=== PATIENT | male | born 1970 | race Caucasian/White ===

== ENCOUNTER 2017-05-15 22:34 | Emergency (ER) | payer OTHER ==
[~2017-05-15] VITALS: Ht 185.4 cm; Wt 108.9 kg
[~2017-05-15 22:34] MED LIST: AMARYL2 MG PO; AMOXICILLIN 50500 MG PO; AUGMENTIN 875875 MG PO; BELSOMRA20 MG PO; BENADRYL25 MG PO; CIPRO500 MG PO; CIPROFLOXACIN500 M1; CIPROFLOXACIN500 M1 PO; DILAUDID1 MG/1 ML IV PUSH; DIPHENHYDRAM50 MG/M2 IV PUSH; FENTANYL 75 MCG TRANSDERM; FENTANYL PA50 MCG/HR TP; FENTANYL PA50 MCG/HR TRANSDERM; FENTANYL PATCH75 MCG TRANSDERM; FLAGYL500 MG; FLAGYL500 MG PO; FLEXERIL PO; GLUCOPHAGE1000 MG PO; HYDROCODON-ACE1 EAC5 PO; HYDROCODONE-AP1 EAC6 PO; IBUPROFEN 800800 M1 PO; INVOKANA100 MG PO; INVOKANA300 MG PO; JANUMET 50-5001 EACH PO; KEFLEX500 M1 PO; LANTUS100 UNIT/M SUBQ; LEVEMIR SUBQ; LEXAPRO 10 MG T10 M2 PO; LIPITOR10 MG PO; LORTAB 10-3251 EACH PO; NABUMETONE 500500 M1 PO; NABUMETONE PO; NEURONTIN 300300 M1 PO; NORCO 10-325 T1 EACH PO; NORCO 5-325 TA1 EACH PO; NOVOLOG100 UNIT/1 SUBQ; ONDANSETRON HCL4 M1 IV; ONDANSETRON HCL4 M2 IV; ONDANSETRON HCL4 M2 PO; PANTOPRAZOLE PO; PERCOCET 10-321 EACH PO; PERCOCET 5-3251 EACH PO; PHENERGAN 25 MG25 M1 PO; PREDNISONE 10 M10 M1 PO; PROPRANOLOL 1010 M1 PO; PROZASIN PO; RESTORIL15 MG PO; RESTORIL30 MG PO; TRAMADOL 50 MG50 MG PO; TRAZODONE 150150 M1 PO; TYLENOL325 MG PO; ULTRACET TABLE1 EACH PO; VALIUM5 MG PO; VICODIN 5-5001 EACH PO; VICODIN HP 10-1 EAC1 PO; ZANTAC 150MG T150 M1; ZOFRAN ODT4 MG PO; ZOLOFT100 MG PO; ZOLOFT50 MG PO; victoza PO
[2017-05-15] MEDS ORDERED: NOVOLIN 70100 UNIT/1 SUBQ (22:48)
[2017-05-15] MEDS ORDERED: LANTUS SUBQ (22:48)
[2017-05-15] MEDS ORDERED: KEFLEX500 M1 PO (22:51)
[2017-05-15] MEDS ORDERED: NAPROSYN500 MG PO (22:51)
[2017-05-15 22:59] VITALS: BP 135/82
== END 2017-05-15 23:00 | disposition home or self-care (01) ==
LOC: M.ERS 22:34
DX: L03.031 Cellulitis of right toe (principal); E11.9 Type 2 diabetes mellitus without complications; F17.200 Nicotine dependence, unspecified, uncomplicated; Z88.6 Allergy status to analgesic agent; Z91.041 Radiographic dye allergy status

== ENCOUNTER → 2017-07-31 | Outpatient (CLI) | payer OTHER ==
[~2017-07-31] MED LIST changes: +AZITHROMYCIN 2250 MG PO; +LANTUS SUBQ; +NAPROSYN500 MG PO; +NOVOLIN 70100 UNIT/1 SUBQ; +PRILOSEC OTC20 MG PO; +TRULICITY
== END ==
LOC: M.MRI 07-24 11:05
DX: M75.101 Unspecified rotator cuff tear or rupture of right shoulder, not specified as traumatic (principal); S83.242A Other tear of medial meniscus, current injury, left knee, initial encounter; X58.XXXA Exposure to other specified factors, initial encounter; Y93.89 Activity, other specified; Y92.89 Other specified places as the place of occurrence of the external cause; Y99.8 Other external cause status

== ENCOUNTER 2017-08-11 20:06 | Inpatient (IN) | payer OTHER ==
[~2017-08-11] VITALS: Ht 182.9 cm; Wt 103.9 kg
[~2017-08-11 20:06] MED LIST changes: -AZITHROMYCIN 2250 MG PO; -PRILOSEC OTC20 MG PO; -TRULICITY
[2017-08-11 20:37] VITALS: BP 125/94
[2017-08-11] MEDS ORDERED: NOVOLOG100 UNIT/1 SUBQ (20:47)
[2017-08-11] MEDS ORDERED: NEURONTIN 300300 M1 PO (20:48)
--- NOTE | 2017-08-11 20:49 | NUR ---
TRIAGE DONE BY BECKI DREW RN
[2017-08-11 20:58] LABS: ABSOLUTE BASOPHILS 0.1 thou/uL (0.0-0.2); ABSOLUTE EOSINOPHILS 0.1 thou/uL (0.0-0.7); ABSOLUTE LYMPHOCYTES 2.7 thou/uL (0.8-5.3); ABSOLUTE MONOCYTES 0.8 thou/uL (0.0-1.2); BASOPHILS 0.8 %; EOSINOPHILS 0.6 %; HEMATOCRIT 50.2 % (42.0-52.0); MCH 29.4 pg (26.0-34.0); MCHC 33.9 g/dL (28.0-37.0); MCV 86.8 fL (80.0-100.0); MONOCYTES 7.4 %; MPV 7.1 fl. (7.2-11.1); NUCLEATED RBCS 0 /100WBC; PLATELET COUNT* 287 thou/uL (150-400); POLYS 66.2 %; RBC 5.78 mil/uL (4.50-6.00); RDW-CV 13.7 % (10.5-14.5); WBC 10.6 thou/uL (4.0-11.0)
[2017-08-11 21:08] LABS: CALCIUM 8.4 mg/dL (8.5-10.1); CREATININE 0.9 mg/dL (0.6-1.3); POTASSIUM 3.8 mmol/L (3.5-5.1)
[2017-08-11 21:13] LABS: ALBUMIN 3.6 g/dL (3.4-5.0); TOTAL BILIRUBIN 0.6 mg/dL (<0.1-1.0); TOTAL PROTEIN 7.2 g/dL (6.4-8.2)
[2017-08-11 22:54] LABS: URINE BLOOD TRACE (Negative); URINE CLARITY CLEAR; URINE COLOR YELLOW; URINE GLUCOSE-RANDOM 3+ (Negative); URINE LEUKOCYTES-REFLEX NEGATIVE (Negative); URINE NITRITE-REFLEX NEGATIVE (Negative); URINE PROTEIN NEGATIVE (Negative); URINE SPECIFIC GRAVITY 1.025 (1.005-1.030); URINE UROBILINOGEN 0.2 E.U./dl (0.2-1.0)
[2017-08-11 22:57] LABS: ICTOTEST (BILI CONFIRMATORY) Negative (Negative); URINE BILIRUBIN 1+ (Negative); URINE KETONES 3+ (Negative)
[2017-08-11 23:35] VITALS: BP 109/70
[2017-08-11 23:39] LABS: AMP/METHAMP POSITIVE (Negative); BARBITURATES Negative (Negative); BENZODIAZEPINES POSITIVE (Negative); COCAINE Negative (Negative); METHADONE Negative (Negative); OPIATES Negative (Negative); PCP Negative (Negative); THC Negative (Negative)
[2017-08-11 23:45] VITALS: BP 120/81
--- NOTE | 2017-08-11 23:45 | NUR ---
PT ADMITTED TO FLOOR PER CART ACCOMPANIED BY ER STAFF WITH BELONGINGS.AMBULATES FROM CART TO BED WITH STEADY GAIT INDEP. RAC IVF PLACED ON PUMP FOR INFUSION. PT CO RLQ RADIATING TO R FLANK PAIN 6/10, WILL GIVE PAIN MEDS ORDERED. DENIES N/V, REQUESTING BOX LUNCH. ORIENTED TO ROOM AND CALL LITE. HISTORY OBTAINED AND ASSESSMENT PERFORMED, SEE ADMIT NOTES. REFUSING SCDS, EDUCATION GIVEN. ACCUCHECK 215, REFUSING INSULIN. INSTRUCTED IN NPO AFTER MIDNIGHT AND SURGERY CONSULT IN THE MORNING, VERBALIZES UNDERSTANDING. CALL LITE IN EASY REACH. WILL CONTINUE TO MONITOR AND PROVIDE CARES NEEDED.
[2017-08-12 04:19] LABS: HEMATOCRIT 45.5 % (42.0-52.0); HEMOGLOBIN 15.3 gm/dL (14.0-18.0); MCH 29.3 pg (26.0-34.0); MCHC 33.7 g/dL (28.0-37.0); MCV 87.1 fL (80.0-100.0); MPV 7.5 fl. (7.2-11.1); RBC 5.22 mil/uL (4.50-6.00); RDW-CV 13.7 % (10.5-14.5); WBC 8.9 thou/uL (4.0-11.0)
[2017-08-12 04:35] LABS: POTASSIUM 4.4 mmol/L (3.5-5.1)
--- NOTE | 2017-08-12 06:00 | NUR ---
NEW ADMISSION OVERNIGHT. PT HAD BOX LUNCH WITHOUT N/V AFTER ARRIVING TO FLOOR. IV PAIN MED GIVEN X2 FOR CO RLQ RADIATING TO BACK ABD PAIN 6-8/10 WITH GOOD RELIEF. PT HAS SLEPT OFF AND ON AFTER RECEIVING IV PAIN MED. USING URINAL TO VOID GOOD AMOUNT. ACCUCHECK ON ARRIVAL TO UNIT 215, PT REFUSING INSULIN STATING HE TOOK SOMETHING AT HOME AND DIDNT WANT TO BOTTOM OUT WHILE BEING NPO. AM LABS DRAWN. SURGERY TO SEE PT THIS MORNING. PT NPO SINCE 0100. NO N/V. ABLE TO USE CALL LITE AND MAKE NEEDS KNOWN. IVF INFUSING PER PUMP RAC.
[2017-08-12 08:00] VITALS: BP 107/76
--- NOTE | 2017-08-12 12:03 | NUR ---
Nutrition: Consult received for "weight change." Pt admitted with possible appendicitis. He has DM and takes insulin. 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 He stated he has lost about 60# because "he needed to." This was through diet and exercise. BG today is 388-266. Pt eating 100% of meals. Albumin 3.6. No nutrition interventions needed at this time. Low risk. GOAL: better BG control.
[2017-08-12 15:06] VITALS: BP 107/76
[2017-08-12] MEDS ORDERED: PRILOSEC OTC20 MG PO (15:06)
== END 2017-08-12 16:49 | disposition home or self-care (01) | DRG 641 ==
LOC: M.ERS 20:06 → M.3W 23:04 → M.TBA-ER 23:04 → M.3W 23:45
PROVIDERS: Emergency Medicine; ADMIT Internal Medicine
DX: E86.0 Dehydration (principal); K52.9 Noninfective gastroenteritis and colitis, unspecified; E87.1 Hypo-osmolality and hyponatremia; F17.210 Nicotine dependence, cigarettes, uncomplicated; K59.00 Constipation, unspecified; E11.40 Type 2 diabetes mellitus with diabetic neuropathy, unspecified; M19.90 Unspecified osteoarthritis, unspecified site; E11.65 Type 2 diabetes mellitus with hyperglycemia; Z87.820 Personal history of traumatic brain injury; Z79.899 Other long term (current) drug therapy; Z88.8 Allergy status to other drugs, medicaments and biological substances; Z91.041 Radiographic dye allergy status; Z90.49 Acquired absence of other specified parts of digestive tract; Z83.3 Family history of diabetes mellitus

== ENCOUNTER 2017-09-30 21:13 | Inpatient (IN) | payer OTHER ==
[~2017-09-30] VITALS: Ht 182.9 cm; Wt 104.3 kg
[~2017-09-30 21:13] MED LIST changes: +PRILOSEC OTC20 MG PO
[2017-09-30] MEDS ORDERED: TRULICITY (21:22)
[2017-09-30 21:23] VITALS: BP 167/102
[2017-09-30 21:46] LABS: URINE BILIRUBIN NEGATIVE (Negative); URINE BLOOD NEGATIVE (Negative); URINE CLARITY CLEAR; URINE COLOR YELLOW; URINE GLUCOSE-RANDOM NEGATIVE (Negative); URINE KETONES 1+ (Negative); URINE LEUKOCYTES-REFLEX NEGATIVE (Negative); URINE NITRITE-REFLEX NEGATIVE (Negative); URINE PROTEIN NEGATIVE (Negative); URINE SPECIFIC GRAVITY 1.025 (1.005-1.030); URINE UROBILINOGEN 0.2 E.U./dl (0.2-1.0)
[2017-09-30 21:49] LABS: HEMATOCRIT 48.9 % (42.0-52.0); HEMOGLOBIN 16.5 gm/dL (14.0-18.0); MCH 29.8 pg (26.0-34.0); MCHC 33.7 g/dL (28.0-37.0); MCV 88.3 fL (80.0-100.0); MPV 6.6 fl. (7.2-11.1); NUCLEATED RBCS 0 /100WBC; PLATELET COUNT* 374 thou/uL (150-400); RBC 5.54 mil/uL (4.50-6.00); RDW-CV 14.1 % (10.5-14.5); WBC 23.5 thou/uL (4.0-11.0)
[2017-09-30 21:56] LABS: ANION GAP 11 mmol/L (7-16); BUN 15 mg/dL (7-18); CALCIUM 8.7 mg/dL (8.5-10.1); CHLORIDE 101 mmol/L (98-107); CO2 26 mmol/L (21-32); CREATININE 0.9 mg/dL (0.6-1.3); GLUCOSE 167 mg/dL (70-99); POTASSIUM 4.6 mmol/L (3.5-5.1); SODIUM 138 mmol/L (136-145)
[2017-09-30 22:03] LABS: ALKALINE PHOSPHATASE 162 U/L (46-116); LIPASE 56 U/L (73-393); SGOT 23 U/L (15-37); SGPT 30 U/L (30-65); TOTAL BILIRUBIN 0.5 mg/dL (<0.1-1.0); TOTAL PROTEIN 7.5 g/dL (6.4-8.2); TROPONIN-I LEVEL <0.06 ng/mL (<0.06)
[2017-09-30 22:19] LABS: ABSOLUTE LYMPHOCYTES 4.9 thou/uL (0.8-5.3); ABSOLUTE MONOCYTES 0.9 thou/uL (0.0-1.2); ABSOLUTE NEUTROPHILS 17.6 thou/uL (1.6-8.1)
[2017-09-30 22:20] LABS: PLATELET ESTIMATE ADEQUATE
[2017-09-30 23:15] LABS: AMP/METHAMP POSITIVE (Negative); BARBITURATES Negative (Negative); BENZODIAZEPINES POSITIVE (Negative); COCAINE Negative (Negative); METHADONE Negative (Negative); OPIATES POSITIVE (Negative); PCP Negative (Negative); THC Negative (Negative)
[2017-09-30 23:47] VITALS: BP 139/81
[2017-10-01 01:04] VITALS: BP 149/97
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
[2017-10-01 05:34] VITALS: BP 132/79
[2017-10-01 08:00] VITALS: BP 115/65
--- NOTE | 2017-10-01 10:36 | EKG ---
[place] [address] ELECTROCARDIOGRAM REPORT Name: SUNDAY WHEELER Room: [address] IN [facility]#: [id number] Admission: 09/30/17 Attend Phys: Ap Mccarthy Discharge: Date of : 70 Report #: [id number] THIS REPORT FOR: //name// [facility] ED Test Date: 2017-09-30 Test Time: 21:41:51 Pat Name: SUNDAY WHEELER Department: Room: Gender: Contracts Analyst: RYDER Koenig : 1970 Requested By: Ambar Kruse Order Number: [id number] MD: Rocael Mcelroy Measurements Intervals [place] Rate: 120 P: 56 NE: 164 QRS: 119 QRSD: 99 T: 20 QT: 326 QTc: 461 Interpretive Statements Sinus tachycardia Probable left atrial enlargement Left posterior fascicular block Abnormal R-wave progression, late transition ST elev, probable normal early repol pattern Compared to ECG 09/29/2016 16:42:45 No significant changes Electronically Signed On 10-01-2017 10:36:11 CDT by Rocael Mcelroy [email or web address] <ELECTRONICALLY SIGNED> By: Rocael Mcelroy MD, [facility] 10/01/17 1036 40 40 Rocael Mcelroy MD, [facility] /EPI
--- NOTE | 2017-10-01 11:24 | NUR ---
SW met with pt to complete initial assessment, introduce self, and SW role. Pt alert and oriented. Pt lives at home with his . Pt did not express any dc needs and pt said he was hopeful to be able to return home soon. SW to remain available to assist with safe dc planning.
[2017-10-01 15:52] VITALS: BP 117/75
--- NOTE | 2017-10-01 18:55 | NUR ---
ASSUMED CARE THIS AM, REQUESTING PAIN MEDICATION FREQUENTLY THIS SHIFT, SLEEPING MOST OF THIS SHIFT, VSS, CALL LIGHT IN REACH, CONT POC.
[2017-10-01 23:50] VITALS: BP 116/65
[2017-10-02 04:12] LABS: ABSOLUTE EOSINOPHILS 0.1 thou/uL (0.0-0.7); ABSOLUTE LYMPHOCYTES 2.5 thou/uL (0.8-5.3); ABSOLUTE NEUTROPHILS 7.1 thou/uL (1.6-8.1); BASOPHILS 0.4 %; EOSINOPHILS 0.9 %; HEMATOCRIT 44.5 % (42.0-52.0); HEMOGLOBIN 14.7 gm/dL (14.0-18.0); MCH 29.2 pg (26.0-34.0); MCV 88.3 fL (80.0-100.0); MONOCYTES 9.7 %; MPV 6.7 fl. (7.2-11.1); NUCLEATED RBCS 0 /100WBC; PLATELET COUNT* 326 thou/uL (150-400); RBC 5.04 mil/uL (4.50-6.00); RDW-CV 13.7 % (10.5-14.5); WBC 10.8 thou/uL (4.0-11.0)
--- NOTE | 2017-10-02 05:46 | NUR ---
PATIENT SLEPT MOST OF THE NIGHT. IV FLUIDS CONTINUE TO INFUSE AT 100 ML/HR. PATIENT WAS GIVEN PAIN MEDICINE ABOUT EVERY FOUR HOURS. WILL CONTINUE TO MONITOR.
[2017-10-02 08:00] VITALS: BP 141/94
[2017-10-02] MEDS ORDERED: AZITHROMYCIN 2250 MG PO (10:52)
[2017-10-02] MEDS ORDERED: KEFLEX500 M1 PO (10:52)
[2017-10-02 15:54] VITALS: BP 141/94
[2017-10-02 16:30] VITALS: BP 141/94
--- NOTE | 2017-10-02 18:04 | NUR ---
I ASSUMED CARE OF THE PATIENT AT 0700. PATIENT IS ALERT AND ORIENTED X4, AND IS UP AD WHITLEY. BED IS IN THE LOW LOCKED POSITION AND CALL LIGHT IS IN REACH. HOURLY ROUNDING WAS COMPLETED AND PATIENT NEEDS WERE MET. PAIN IS MANAGED WITH PRN MEDICATIONS. PATIENT'S DIET WAS ADVANCED TO CARB CONTROL AND IT WAS TOLERATED FOR LUNCH. LAST DOSE OF ANTIBIOTICS WAS GIVEN PRIOR TO DISCHARGE. PATIENT IS ADVISED TO CONTACT HIS PCP FOR A PLAN WITH BLOOD SUGAR AND THE TRULILCITY RX. HE WAS D/C'D AT 1630 TO HOME WITH HIS . SCRIPTS WERE GIVEN AND HE LEFT IN A PERSONAL CAR AND WAS AMBULATING. IV WAS REMOVED INTACT AND HOMEOSTASIS WAS ACHEIVED. PATIENT WAS PROGRESSING TOWARD GOALS.
== END 2017-10-02 16:30 | disposition home or self-care (01) | DRG 871 ==
LOC: M.ERS 21:13 → M.3W 23:04 → M.TBA-ER 23:04 → M.3W 23:46
PROVIDERS: Nurse Practitioner Family; Physician Assistant; ADMIT Internal Medicine
DX: A41.9 Sepsis, unspecified organism (principal); J69.0 Pneumonitis due to inhalation of food and vomit; M19.90 Unspecified osteoarthritis, unspecified site; E11.40 Type 2 diabetes mellitus with diabetic neuropathy, unspecified; F17.210 Nicotine dependence, cigarettes, uncomplicated; Z88.8 Allergy status to other drugs, medicaments and biological substances; Z91.041 Radiographic dye allergy status; Z79.4 Long term (current) use of insulin; Z90.49 Acquired absence of other specified parts of digestive tract; Z83.3 Family history of diabetes mellitus